=== PATIENT | female | born 1965 | race Caucasian/White ===

== ENCOUNTER 2017-06-09 13:14 | Inpatient (IN) | payer BC ==
[~2017-06-09] VITALS: Ht 152.4 cm; Wt 64.0 kg
[2017-06-09 14:27] VITALS: BP_SYST 139
[2017-06-09] MEDS ORDERED: PIPERACILLIN/TAZO 3.38 GM in NS 50 ML IV ONE (15:15)
[2017-06-09] MEDS ORDERED: KETOROLAC TROMETHAMINE 30 MG VIAL IVP ONE (15:15)
[2017-06-09] MEDS ORDERED: PIPERACILLIN/TAZOBACTAM 3.375 GM/VIAL (ZOSYN) IV ONE (15:38)
[2017-06-09 15:44] LABS: EOSINOPHILS % (AUTO) 0.1 % (0.0-4.0); HEMATOCRIT 41.4 % (36-48); HEMOGLOBIN 13.5 g/dL (12.0-16.0); MEAN CORPUSCULAR HEMOGLOBIN 30 pg (27-31); MEAN CORPUSCULAR HGB CONC 33 % (32-36); MEAN CORPUSCULAR VOLUME 91 fL (79.0-98.0); MONOCYTES # (AUTO) 1.1 K/uL (0.0-1.0); MONOCYTES % (AUTO) 5.8 % (1.7-9.3); NEUTROPHILS % (AUTO) 89.3 % (40.0-70.0); PLATELET COUNT (AUTO) 201 K/uL (130-430); RED BLOOD CELL COUNT(AUTO) 4.56 MIL/uL (4.2-6.2); RED CELL DISTRIBUTION WIDTH 12.1 % (9.0-15.0)
[2017-06-09 15:47] LABS: LYMPHOCYTES # (AUTO) 0.9 K/uL (1.0-5.5); LYMPHOCYTES % (AUTO) 4.8 % (20.5-51.5)
[2017-06-09 15:57] LABS: CALCIUM 9.2 mg/dL (8.4-11.0); CREATININE 0.51 mg/dL (0.55-1.30); POTASSIUM 4.1 mmol/L (3.5-5.1)
[2017-06-09 16:01] LABS: ALBUMIN 3.7 g/dL (3.4-4.8); TOTAL BILIRUBIN 0.6 mg/dL (0.0-1.0)
[2017-06-09] MEDS ORDERED: ONDANSETRON HCL 4 MG/2 ML VIAL IVP ONE (18:00)
[2017-06-09] MEDS ORDERED: HYDROmorphone 1 MG INJ. 1 MG/ML AMPUL IVP ONE (18:00)
[2017-06-09 19:00] VITALS: BP_SYST 129
[2017-06-09] MEDS ORDERED: DEXTROSE 50% JECT 50 ML DISP.SYRIN IVP PRN (19:30)
[2017-06-09] MEDS ORDERED: ONDANSETRON HCL 4 MG/2 ML VIAL IVP PRN (19:30)
[2017-06-09] MEDS ORDERED: ACETAMINOPHEN 325 MG TABLET PO PRN (19:30)
[2017-06-09] MEDS: HYDROcodone/ACETAMIN 5-325 MG TAB (NORCO/ VICODIN) PO PRN (20:16)
[2017-06-09] MEDS: KETOROLAC TROMETHAMINE 15 MG VIAL IVP PRN (20:16)
[2017-06-09] MEDS ORDERED: AMPICILLIN SODIUM/SULBACTAM NA 3 GM VIAL ONE (20:55)
[2017-06-09] MEDS: FAMOTIDINE PF 20 MG/2 ML VIAL IVP SCH (21:28)
[2017-06-09] MEDS ORDERED: LEVOFLOXACIN 500 MG/D5W 100 ML IV ONE (22:27)
[2017-06-09] MEDS: LEVOFLOXACIN 500 MG/D5W 100 ML IV SCH (22:32)
[2017-06-09 23:21] LABS: BILIRUBIN,URINE 1+ (NEGATIVE); BLOOD, URINE 1+ (NEGATIVE); CLARITY/URINE SL CLOUDY (CLEAR); COLOR,URINE YELLOW (YELLOW); GLUCOSE,URINE NEGATIVE (NEGATIVE); KETONES,URINE 3+ (NEGATIVE); LEUKOCYTE ESTERASE ,URINE NEGATIVE (NEGATIVE); NITRITE, URINE NEGATIVE (NEGATIVE); PH,URINE 5.5 (5.0-8.0); PROTEIN URINE 2+ (NEGATIVE); UROBILINOGEN,URINE 0.2 (0.2-1.0)
[2017-06-09 23:55] LABS: BACTERIA,URINE RARE /HPF (None Seen); WBC,URINE 0-3 /HPF (0-3)
[2017-06-10] MEDS ORDERED: AMPICILLIN SODIUM/SULBACTAM NA 3 GM in NS 100 ML IV SCH ×2
[2017-06-10 00:04] VITALS: BP_SYST 120; BP_SYST 134
[2017-06-10] MEDS: HYDROcodone/ACETAMIN 5-325 MG TAB (NORCO/ VICODIN) PO PRN ×5 (00:16→21:09)
[2017-06-10] MEDS: KETOROLAC TROMETHAMINE 15 MG VIAL IVP PRN (02:26)
[2017-06-10 06:56] LABS: BASOPHILS % (AUTO) 0.3 % (0.0-2.0); EOSINOPHILS % (AUTO) 0.2 % (0.0-4.0); HEMATOCRIT 35.4 % (36-48); HEMOGLOBIN 11.9 g/dL (12.0-16.0); LYMPHOCYTES # (AUTO) 0.5 K/uL (1.0-5.5); LYMPHOCYTES % (AUTO) 3.3 % (20.5-51.5); MEAN CORPUSCULAR HEMOGLOBIN 31 pg (27-31); MEAN CORPUSCULAR HGB CONC 34 % (32-36); MEAN CORPUSCULAR VOLUME 91 fL (79.0-98.0); MONOCYTES # (AUTO) 1.1 K/uL (0.0-1.0); MONOCYTES % (AUTO) 7.2 % (1.7-9.3); NEUTROPHILS # (AUTO) 14.1 K/uL (1.8-7.7); PLATELET COUNT (AUTO) 160 K/uL (130-430); RED BLOOD CELL COUNT(AUTO) 3.87 MIL/uL (4.2-6.2); RED CELL DISTRIBUTION WIDTH 12.4 % (9.0-15.0); WHITE BLOOD COUNT (AUTO) 15.7 K/uL (4.8-10.8)
[2017-06-10 07:17] LABS: ALBUMIN 2.9 g/dL (3.4-4.8); CALCIUM 8.6 mg/dL (8.4-11.0); CREATININE 0.61 mg/dL (0.55-1.30); POTASSIUM 3.6 mmol/L (3.5-5.1); TOTAL BILIRUBIN 0.7 mg/dL (0.0-1.0)
[2017-06-10 08:00] VITALS: BP_SYST 107
[2017-06-10] MEDS: FAMOTIDINE PF 20 MG/2 ML VIAL IVP SCH ×2 (08:33→21:12)
[2017-06-10 12:59] VITALS: BP_SYST 117
[2017-06-10 16:31] VITALS: BP_SYST 116
[2017-06-10 19:10] VITALS: BP_SYST 116
[2017-06-10] MEDS: LEVOFLOXACIN 500 MG/D5W 100 ML IV SCH (21:08)
[2017-06-11] VITALS: BP_SYST 111
[2017-06-11] MEDS: HYDROcodone/ACETAMIN 5-325 MG TAB (NORCO/ VICODIN) PO PRN ×4 (05:59→20:55)
[2017-06-11 06:45] LABS: CALCIUM 8.8 mg/dL (8.4-11.0); CREATININE 0.58 mg/dL (0.55-1.30)
[2017-06-11 06:50] LABS: BASOPHILS # (AUTO) 0.1 K/uL (0.0-0.2); BASOPHILS % (AUTO) 0.5 % (0.0-2.0); EOSINOPHILS # (AUTO) 0.1 K/uL (0.0-0.4); HEMATOCRIT 33.2 % (36-48); HEMOGLOBIN 11.1 g/dL (12.0-16.0); LYMPHOCYTES # (AUTO) 0.7 K/uL (1.0-5.5); LYMPHOCYTES % (AUTO) 6.8 % (20.5-51.5); MEAN CORPUSCULAR HEMOGLOBIN 31 pg (27-31); MEAN CORPUSCULAR HGB CONC 34 % (32-36); MEAN CORPUSCULAR VOLUME 92 fL (79.0-98.0); MONOCYTES # (AUTO) 0.9 K/uL (0.0-1.0); MONOCYTES % (AUTO) 8.9 % (1.7-9.3); NEUTROPHILS # (AUTO) 8.3 K/uL (1.8-7.7); NEUTROPHILS % (AUTO) 82.8 % (40.0-70.0); PLATELET COUNT (AUTO) 147 K/uL (130-430); RED BLOOD CELL COUNT(AUTO) 3.62 MIL/uL (4.2-6.2); RED CELL DISTRIBUTION WIDTH 12.1 % (9.0-15.0); WHITE BLOOD COUNT (AUTO) 10.1 K/uL (4.8-10.8)
[2017-06-11 08:05] VITALS: BP_SYST 109
[2017-06-11] MEDS: FAMOTIDINE PF 20 MG/2 ML VIAL IVP SCH ×2 (10:49→20:55)
[2017-06-11] MEDS ORDERED: MILK OF MAGNESIA 30 ML UDC PO PRN (11:30)
[2017-06-11] MEDS ORDERED: DOCUSATE SODIUM 250 MG CAPSULE PO ONE (11:30)
[2017-06-11 12:16] VITALS: BP_SYST 139
[2017-06-11] MEDS ORDERED: VANCOMYCIN HCL 1,000 MG in NS 250 ML IV SCH (13:00)
[2017-06-11] MEDS: KETOROLAC TROMETHAMINE 15 MG VIAL IVP PRN ×2 (13:48)
[2017-06-11] MEDS: VANCOMYCIN HCL 1,000 MG in D5W 250 ML IV SCH ×2 (13:58→20:48)
[2017-06-11] MEDS ORDERED: DOXYCYCLINE HYCLATE 100 MG CAPSULE PO SCH (16:15)
[2017-06-11 16:19] VITALS: BP_SYST 107
[2017-06-11] MEDS: DOXYCYCLINE HYCLATE 100 MG in D5W 100 ML IV SCH (20:54)
[2017-06-11] MEDS: DOCUSATE SODIUM 250 MG CAPSULE PO SCH (20:54)
[2017-06-11] MEDS: LEVOFLOXACIN 500 MG/D5W 100 ML IV SCH (20:56)
[2017-06-11 21:12] VITALS: BP_SYST 121
[2017-06-12] VITALS: BP_SYST 120
[2017-06-12] MEDS: KETOROLAC TROMETHAMINE 15 MG VIAL IVP PRN ×3 (00:31→22:51)
[2017-06-12] MEDS: HYDROcodone/ACETAMIN 5-325 MG TAB (NORCO/ VICODIN) PO PRN ×6 (02:19→21:25)
[2017-06-12 06:46] LABS: CALCIUM 8.6 mg/dL (8.4-11.0); CREATININE 0.56 mg/dL (0.55-1.30); POTASSIUM 3.9 mmol/L (3.5-5.1)
[2017-06-12 06:51] LABS: BASOPHILS % (AUTO) 0.2 % (0.0-2.0); EOSINOPHILS # (AUTO) 0.1 K/uL (0.0-0.4); EOSINOPHILS % (AUTO) 1.8 % (0.0-4.0); HEMATOCRIT 29.2 % (36-48); HEMOGLOBIN 9.7 g/dL (12.0-16.0); LYMPHOCYTES # (AUTO) 0.7 K/uL (1.0-5.5); LYMPHOCYTES % (AUTO) 10.6 % (20.5-51.5); MEAN CORPUSCULAR HEMOGLOBIN 30 pg (27-31); MEAN CORPUSCULAR HGB CONC 33 % (32-36); MEAN CORPUSCULAR VOLUME 92 fL (79.0-98.0); MONOCYTES # (AUTO) 0.7 K/uL (0.0-1.0); MONOCYTES % (AUTO) 11.5 % (1.7-9.3); NEUTROPHILS # (AUTO) 4.9 K/uL (1.8-7.7); NEUTROPHILS % (AUTO) 75.9 % (40.0-70.0); PLATELET COUNT (AUTO) 149 K/uL (130-430); RED BLOOD CELL COUNT(AUTO) 3.19 MIL/uL (4.2-6.2); RED CELL DISTRIBUTION WIDTH 11.9 % (9.0-15.0); WHITE BLOOD COUNT (AUTO) 6.4 K/uL (4.8-10.8)
[2017-06-12 08:30] VITALS: BP_SYST 124
[2017-06-12] MEDS: DOCUSATE SODIUM 250 MG CAPSULE PO SCH ×2 (09:28→21:25)
[2017-06-12] MEDS: FAMOTIDINE PF 20 MG/2 ML VIAL IVP SCH ×2 (09:28→21:00)
[2017-06-12] MEDS: DOXYCYCLINE HYCLATE 100 MG in D5W 100 ML IV SCH ×2 (09:29→22:39)
[2017-06-12 12:00] VITALS: BP_SYST 129
[2017-06-12 16:51] VITALS: BP_SYST 108
[2017-06-12 20:00] VITALS: BP_SYST 124
[2017-06-12] MEDS: LEVOFLOXACIN 500 MG/D5W 100 ML IV SCH (22:00)
[2017-06-13 00:20] VITALS: BP_SYST 109
[2017-06-13] MEDS: HYDROcodone/ACETAMIN 5-325 MG TAB (NORCO/ VICODIN) PO PRN ×4 (02:12→21:06)
[2017-06-13] MEDS: KETOROLAC TROMETHAMINE 15 MG VIAL IVP PRN (06:25)
[2017-06-13] MEDS ORDERED: DIPHENOXYLATE HCL/ATROP SULF 2.5 MG TAB PO PRN (07:00)
[2017-06-13 08:00] VITALS: BP_SYST 113
[2017-06-13] MEDS: DOXYCYCLINE HYCLATE 100 MG in D5W 100 ML IV SCH ×2 (09:09→21:05)
[2017-06-13] MEDS: FAMOTIDINE PF 20 MG/2 ML VIAL IVP SCH ×2 (09:10→21:05)
[2017-06-13 12:00] VITALS: BP_SYST 118
[2017-06-13] MEDS: VANCOMYCIN HCL 1,000 MG in D5W 250 ML IV SCH (12:23)
[2017-06-13 16:00] VITALS: BP_SYST 121
[2017-06-13 20:00] VITALS: BP_SYST 117
[2017-06-13] MEDS: LEVOFLOXACIN 500 MG/D5W 100 ML IV SCH (22:20)
[2017-06-14] VITALS: BP_SYST 123
[2017-06-14] MEDS: KETOROLAC TROMETHAMINE 15 MG VIAL IVP PRN ×3 (00:53→14:59)
[2017-06-14] MEDS: HYDROcodone/ACETAMIN 5-325 MG TAB (NORCO/ VICODIN) PO PRN ×7 (01:11→23:26)
[2017-06-14 07:20] LABS: BASOPHILS % (AUTO) 0.7 % (0.0-2.0); EOSINOPHILS # (AUTO) 0.2 K/uL (0.0-0.4); EOSINOPHILS % (AUTO) 3.1 % (0.0-4.0); HEMATOCRIT 31.6 % (36-48); HEMOGLOBIN 10.8 g/dL (12.0-16.0); LYMPHOCYTES # (AUTO) 0.9 K/uL (1.0-5.5); LYMPHOCYTES % (AUTO) 16.1 % (20.5-51.5); MEAN CORPUSCULAR HEMOGLOBIN 31 pg (27-31); MEAN CORPUSCULAR HGB CONC 34 % (32-36); MEAN CORPUSCULAR VOLUME 90 fL (79.0-98.0); MONOCYTES # (AUTO) 0.6 K/uL (0.0-1.0); MONOCYTES % (AUTO) 10.5 % (1.7-9.3); NEUTROPHILS # (AUTO) 3.6 K/uL (1.8-7.7); NEUTROPHILS % (AUTO) 69.6 % (40.0-70.0); PLATELET COUNT (AUTO) 266 K/uL (130-430); RED BLOOD CELL COUNT(AUTO) 3.51 MIL/uL (4.2-6.2); RED CELL DISTRIBUTION WIDTH 12.2 % (9.0-15.0); WHITE BLOOD COUNT (AUTO) 5.3 K/uL (4.8-10.8)
[2017-06-14 07:44] LABS: CALCIUM 9.4 mg/dL (8.4-11.0); CREATININE 0.6 mg/dL (0.55-1.30); POTASSIUM 4.1 mmol/L (3.5-5.1)
[2017-06-14 08:00] VITALS: BP_SYST 103
[2017-06-14] MEDS: FAMOTIDINE PF 20 MG/2 ML VIAL IVP SCH ×2 (08:39→21:51)
[2017-06-14] MEDS: DOXYCYCLINE HYCLATE 100 MG in D5W 100 ML IV SCH ×2 (08:40→21:50)
[2017-06-14 12:00] VITALS: BP_SYST 110
[2017-06-14] MEDS: VANCOMYCIN HCL 1,000 MG in D5W 250 ML IV SCH (13:00)
[2017-06-14 16:00] VITALS: BP_SYST 113
[2017-06-14 20:00] VITALS: BP_SYST 139
[2017-06-14] MEDS: LEVOFLOXACIN 500 MG/D5W 100 ML IV SCH (21:53)
[2017-06-15] VITALS: BP_SYST 132
[2017-06-15] MEDS: HYDROcodone/ACETAMIN 5-325 MG TAB (NORCO/ VICODIN) PO PRN ×6 (02:07→22:09)
[2017-06-15 08:00] VITALS: BP_SYST 112
[2017-06-15] MEDS: FAMOTIDINE PF 20 MG/2 ML VIAL IVP SCH ×2 (08:06→21:31)
[2017-06-15] MEDS: DOXYCYCLINE HYCLATE 100 MG in D5W 100 ML IV SCH ×2 (08:08→21:31)
[2017-06-15] MEDS ORDERED: IOHEXOL 100 ML IV ONE (09:05)
[2017-06-15] MEDS: VANCOMYCIN HCL 1,000 MG in D5W 250 ML IV SCH (13:38)
[2017-06-15 20:00] VITALS: BP_SYST 122
[2017-06-15] MEDS: LEVOFLOXACIN 500 MG/D5W 100 ML IV SCH (22:10)
[2017-06-16] VITALS: BP_SYST 113
[2017-06-16] MEDS: HYDROcodone/ACETAMIN 5-325 MG TAB (NORCO/ VICODIN) PO PRN ×5 (02:00→23:42)
[2017-06-16 08:00] VITALS: BP_SYST 110
[2017-06-16] MEDS: DOXYCYCLINE HYCLATE 100 MG in D5W 100 ML IV SCH (08:38)
[2017-06-16] MEDS: FAMOTIDINE PF 20 MG/2 ML VIAL IVP SCH ×2 (08:43→21:47)
[2017-06-16] MEDS: INSULIN REGULAR, HUMAN 100 UNITS/ML, 10 ML VIAL (novoLIN R) SUBCUT PRN ×2 (11:20→16:37)
[2017-06-16 12:00] VITALS: BP_SYST 118
[2017-06-16] MEDS: VANCOMYCIN HCL 1,000 MG in D5W 250 ML IV SCH (12:00)
[2017-06-16 16:12] VITALS: BP_SYST 109
[2017-06-16 20:00] VITALS: BP_SYST 119
[2017-06-16] MEDS: LEVOFLOXACIN 500 MG/D5W 100 ML IV SCH (21:47)
[2017-06-17 00:10] VITALS: BP_SYST 133
[2017-06-17] MEDS: HYDROcodone/ACETAMIN 5-325 MG TAB (NORCO/ VICODIN) PO PRN ×3 (06:10→23:49)
[2017-06-17 07:18] LABS: CALCIUM 8.8 mg/dL (8.4-11.0); CREATININE 0.6 mg/dL (0.55-1.30); POTASSIUM 3.9 mmol/L (3.5-5.1)
[2017-06-17 07:33] LABS: BASOPHILS % (AUTO) 0.6 % (0.0-2.0); EOSINOPHILS # (AUTO) 0.2 K/uL (0.0-0.4); EOSINOPHILS % (AUTO) 6.8 % (0.0-4.0); HEMATOCRIT 36.1 % (36-48); HEMOGLOBIN 11.8 g/dL (12.0-16.0); LYMPHOCYTES % (AUTO) 28.3 % (20.5-51.5); MEAN CORPUSCULAR HEMOGLOBIN 29 pg (27-31); MEAN CORPUSCULAR HGB CONC 33 % (32-36); MEAN CORPUSCULAR VOLUME 90 fL (79.0-98.0); MONOCYTES # (AUTO) 0.6 K/uL (0.0-1.0); NEUTROPHILS # (AUTO) 1.8 K/uL (1.8-7.7); NEUTROPHILS % (AUTO) 48.3 % (40.0-70.0); PLATELET COUNT (AUTO) 306 K/uL (130-430); RED BLOOD CELL COUNT(AUTO) 4.02 MIL/uL (4.2-6.2); RED CELL DISTRIBUTION WIDTH 11.8 % (9.0-15.0); WHITE BLOOD COUNT (AUTO) 3.6 K/uL (4.8-10.8)
[2017-06-17 07:35] LABS: TOTAL BILIRUBIN 0.2 mg/dL (0.0-1.0)
[2017-06-17] MEDS: FAMOTIDINE PF 20 MG/2 ML VIAL IVP SCH ×2 (09:06→21:36)
[2017-06-17] MEDS ORDERED: VANCOMYCIN HCL 1,000 MG in D5W 250 ML IV SCH (13:00)
[2017-06-17 14:31] VITALS: BP_SYST 128
[2017-06-17 16:00] VITALS: BP_SYST 128
[2017-06-17 16:04] VITALS: BP_SYST 111
[2017-06-17 20:00] VITALS: BP_SYST 123
[2017-06-17] MEDS: LEVOFLOXACIN 500 MG/D5W 100 ML IV SCH (23:48)
[2017-06-18] VITALS: BP_SYST 126
[2017-06-18] MEDS: HYDROcodone/ACETAMIN 5-325 MG TAB (NORCO/ VICODIN) PO PRN ×2 (07:01→12:44)
[2017-06-18 08:00] VITALS: BP_SYST 110
[2017-06-18] MEDS: FAMOTIDINE PF 20 MG/2 ML VIAL IVP SCH (09:22)
[2017-06-18 12:00] VITALS: BP_SYST 126
[2017-06-18] MEDS ORDERED: DOXY100T2 PO (13:21)
[2017-06-18] MEDS ORDERED: LEVO500T20 PO (13:21)
[2017-06-18] MEDS ORDERED: DIF100 PO (13:21)
[2017-06-18] MEDS ORDERED: HYDR-1189 PO (13:22)
[2017-06-18] MEDS ORDERED: L.RH1CAP PO (13:22)
[2017-06-18 14:25] VITALS: BP_SYST 126
== END 2017-06-18 15:30 | disposition home or self-care (01) | DRG 872 ==
LOC: SED 13:14 → SMU 17:17
PROVIDERS: ADMIT Internal Medicine; ATTEND Internal Medicine
DX: A41.9 Sepsis, unspecified organism (principal); E44.1 Mild protein-calorie malnutrition; D64.9 Anemia, unspecified; E11.9 Type 2 diabetes mellitus without complications; K11.20 Sialoadenitis, unspecified; K11.3 Abscess of salivary gland; L03.211 Cellulitis of face; K59.00 Constipation, unspecified; Z88.0 Allergy status to penicillin; Z80.3 Family history of malignant neoplasm of breast; Z88.1 Allergy status to other antibiotic agents; Z68.27 Body mass index [BMI] 27.0-27.9, adult
CPT/HCPCS: 36415; 70486-TC; 70487; 80048; 80053; 81000-TC; 82962; 83036; 83605; 85025; 87040-TC; 87081; 96365; 96375; 99285; J0295; J1170; J1815; J1885; J1956; J2405; J2543; J3370; J3490; J7030; J7040; J7050; J7060; Q9967

== ENCOUNTER 2017-12-10 18:06 | Emergency (ER) | payer BC ==
[~2017-12-10] VITALS: Ht 154.9 cm; Wt 61.7 kg
[~2017-12-10 18:06] MED LIST: DIF100 PO; DOXY100T2 PO; HYDR-1189 PO; L.RH1CAP PO; LEVO500T20 PO
[2017-12-10 18:15] VITALS: BP_SYST 136
[2017-12-10] MEDS ORDERED: KETOROLAC TROMETHAMINE 15 MG VIAL IVP ONE (18:45)
[2017-12-10 19:08] LABS: BASOPHILS # (AUTO) 0.1 K/uL (0.0-0.2); BASOPHILS % (AUTO) 0.8 % (0.0-2.0); EOSINOPHILS # (AUTO) 0.1 K/uL (0.0-0.4); EOSINOPHILS % (AUTO) 1.5 % (0.0-4.0); HEMATOCRIT 38.5 % (36-48); HEMOGLOBIN 13.1 g/dL (12.0-16.0); LYMPHOCYTES # (AUTO) 1.4 K/uL (1.0-5.5); LYMPHOCYTES % (AUTO) 15.3 % (20.5-51.5); MEAN CORPUSCULAR HEMOGLOBIN 31 pg (27-31); MEAN CORPUSCULAR HGB CONC 34 % (32-36); MEAN CORPUSCULAR VOLUME 92 fL (79.0-98.0); MONOCYTES # (AUTO) 0.6 K/uL (0.0-1.0); MONOCYTES % (AUTO) 6.6 % (1.7-9.3); NEUTROPHILS # (AUTO) 6.7 K/uL (1.8-7.7); NEUTROPHILS % (AUTO) 75.8 % (40.0-70.0); PLATELET COUNT (AUTO) 236 K/uL (130-430); RED BLOOD CELL COUNT(AUTO) 4.19 MIL/uL (4.2-6.2); RED CELL DISTRIBUTION WIDTH 12.4 % (9.0-15.0); WHITE BLOOD COUNT (AUTO) 8.9 K/uL (4.8-10.8)
[2017-12-10 19:21] LABS: CALCIUM 8.5 mg/dL (8.4-11.0); CREATININE 0.62 mg/dL (0.55-1.30); POTASSIUM 3.6 mmol/L (3.5-5.1)
[2017-12-10 19:26] LABS: ALBUMIN 3.7 g/dL (3.4-4.8); TOTAL BILIRUBIN 0.4 mg/dL (0.0-1.0)
[2017-12-10 20:15] VITALS: BP_SYST 128
== END 2017-12-10 20:15 | disposition home or self-care (01) ==
LOC: SED 18:06
DX: K11.20 Sialoadenitis, unspecified (principal); R03.0 Elevated blood-pressure reading, without diagnosis of hypertension; Z88.0 Allergy status to penicillin; Z88.1 Allergy status to other antibiotic agents; Z79.899 Other long term (current) drug therapy
CPT/HCPCS: 36415; 70486; 80053; 81025; 83605; 85025; 87040; 96374; 99285; J1885